=== PATIENT | female | born 1950 | race Caucasian/White ===

== ENCOUNTER 2023-04-18 16:27 | Emergency (ER) | payer MEDICARE, OTHER, SELFPAY ==
[2023-04-18 16:38] VITALS: BP 109/53; BP 84/50; PULSE 70; PULSE 74; RESP 12; TEMP 36.6; O2SAT 98; BMI 26.0
--- NOTE | 2023-04-18 16:48 | ECG_ITS ---
Test Reason : NEAR SYNCOPE Blood Pressure : / mmHG Vent. Rate : 064 BPM Atrial Rate : 064 BPM P-R Int : 152 ms QRS Dur : 076 ms QT Int : 400 ms P-R-T Axes : 055 037 050 degrees QTc Int : 412 ms Normal sinus rhythm Normal ECG No previous ECGs available Referred By: Susan Kaiser Electronically Signed By:HANH WEAVER
[2023-04-18] MEDS: 0.9 % Sodium Chloride 1,000 ML 999 ML IV (16:54)
--- NOTE | 2023-04-18 16:59 | ED_ITS ---
HPI - Syncope General Chief Complaint: Dizziness Stated Complaint: near syncope Time Seen by Provider: 04/18/23 16:35 Source: patient and EMS Mode of arrival: EMS Limitations: no limitations History of Present Illness HPI narrative: playing pickleball for 1.5 hours poor PO intake with water and food felt weak and dizzy responded to time and fluids no preceding CP/SOB has no CP with any activities at baseline MD complaint: felt faint Onset (ago): minute(s) (just prior to arrival ) -: minutes(s) (5) Description of event: other (felt weak and dizzy ) Prodromal symptoms: lightheaded and diaphoresis Witnessed: Yes - by Bystander Context: during exertion (playing pickleball for 1.5 hours poor PO intake and water intake ) Injuries sustained associated with event: none Current symptoms: none and back to baseline Treatments prior to arrival: IV fluids (initial BP 80/50) Related Data Allergies Allergy/AdvReac Type Severity Reaction Status Date / Time Unable to Assess Allergy Verified 04/18/23 16:48 Review of Systems Review of Systems: Constitutional : No Fever, No Chills, No Fatigue ENT/Mouth : No sore throat, No Rhinorrhea Eyes: No Eye Pain, No Swelling, No Redness Cardiovascular : No Chest Pain, No SOB, No Dyspnea on Exertion Respiratory : No Cough, No Sputum Gastrointestinal : No Nausea, No Vomiting, No Diarrhea, No abdominal Pain Genitourinary : No Dysuria, No Urinary Frequency, No Hematuria, Musculoskeletal : No joint pain, No Myalgias, No Joint Swelling Skin : No Skin Lesions, No rash Neuro : No Weakness, No Numbness, pos Dizziness, no Headache Psych : No Anxiety/Panic, No Depression Heme/Lymph: No Bruising, No Bleeding,No Lymphadenopathy Endocrine : No Polyuria, No Polydipsia All other systems reviewed and are negative [facility] Past Medical History Attestation statement: The following information was validated with the patient. Medical History No pertinent past medical history Social History Social History (Updated 04/18/23 @ 17:04 by Susan Kaiser DO) Patient Tobacco Use Status: Never used Tobacco Smoked in Last 30 Days: No Use of substances other than those prescribed or required for medical reasons: No Advance Directives: No Advance Directives Information Provided: Yes Physical Exam Vital Signs: Vital Signs: Last Vital Signs Temp 97.8 F 04/18/23 16:38 Pulse 70 04/18/23 16:38 Resp 12 04/18/23 16:38 BP 109/53 L 04/18/23 16:38 Pulse Ox 98 04/18/23 16:38 O2 Del Method Room Air 04/18/23 16:38 BMI result Body Mass Index 26.0 Appearance: Alert. Oriented X3. No acute distress. Eyes: Pupils equal, round and reactive to light. ENT: Pharynx normal. Neck: Normal inspection. Neck supple. CVS: Normal heart rate and rhythm. Pulses normal. Respiratory: No respiratory distress. Breath sounds normal. Abdomen: Soft and nontender. Skin: Skin warm and dry. Normal skin color. Normal skin turgor. Extremities: No lower extremity edema. No calf ttp Neuro: Oriented X 3. No motor deficit. No sensory deficit. Medications Administered Discontinued Medications Generic Name Dose Route Start Last Admin Trade Name Freq PRN Reason Stop Dose Admin Sodium Chloride 1,000 mls @ 999 mls/hr 04/18/23 17:00 04/18/23 16:54 Ns IV 04/18/23 18:00 999 mls/hr .Q1H1M TEMO Administration Medical Decision Making Medical Decision Making [facility] Narrative: 72 yo female with no PMH was out playing pickleball today with little water in heat for about 1.5 hours she normally participates in the AM - didn't eat anything but breakfast at 10am felt dizzy no CP/SOB tried to get up after being sat down and felt dizzy again - doubt ACS given lack of CP or sob doubt ACS or PE. The patient is back to baseline no headaches denies GIB symptoms suspect dehydration and poor PO intake - BP improve and was low with EMS due to dehydration. IVF labs and EKG ordered Differential Diagnosis Differential Diagnoses: The differential diagnosis associated with the presentation includes dehydration, anemia, CHRISTY, lyte abnormality Admission/Observation Consideration of admission/observation: Escalation of care including admission/observation considered feels better, BP better, EKG normal symptom free doubt ACS stable for outpatient management Lab Data [facility] Lab Attestation statement: I reviewed the patient's lab results. 04/18/23 17:16 Labs: Lab Results 04/18/23 04/18/23 Range/Units 17:16 17:40 WBC 10.1 (4.8-10.8) X10*3/uL RBC 4.59 (4.20-5.50) X10*6/uL Hgb 14.3 (12.0-16.0) g/dl Hct 42.9 (37.0-47.0) % MCV 93.5 (80.0-98.0) fL MCH 31.2 (27.0-33.0) pg MCHC 33.3 (31.0-35.0) g/dl RDW 11.8 (11.0-16.0) % Plt Count 177 (160-400) X10*3/uL MPV 11.2 (9.4-12.3) fL Immature Gran % (Auto) 0.4 (0.0-0.4) % Neut % (Auto) 83.5 H (45-73) % Lymph % (Auto) 9.1 L (20-40) % [place] % (Auto) 5.4 (2-11) % Eos % (Auto) 1.2 (0-4) % Baso % (Auto) 0.4 (0-2) % Lymph # (Auto) 0.9 L (1.2-4.9) X10*3/uL [place] # (Auto) 0.6 (0.1-1.2) X10*3/uL Eos # (Auto) 0.1 (0.0-0.4) X10*3/uL Baso # (Auto) 0.0 (0.0-0.2) X10*3/uL Abs Immat Gran (auto) 0.04 H (0.00-0.03) X10*3/uL Absolute Neuts (auto) 8.5 H (2.0-8.3) x10*3/uL Absolute Nucleated RBC 0.000 (0.0-0.012) X10*3/uL Nucleated RBC % (auto) 0.0 (0.0-0.2) /100WBC Sodium 143 (135-145) mmol/L Potassium 3.8 (3.3-5.1) mmol/L Chloride 112 H (96-108) mmol/L Carbon Dioxide 17 L (22-29) mmol/L Anion Gap 18 (12-20) BUN 22 H (9-16) mg/dL Creatinine 1.00 (0.5-1.4) mg/dL Estim Creat Clear Calc 58.4 Estimated GFR 55 Random Glucose 124 H (60-115) mg/dL Calcium 9.8 (8.4-10.2) mg/dL Magnesium 2.2 (1.6-2.6) mg/dL Independent Interpretation I performed an independent interpretation of an: EKG Interpretation: Rate: 64 Rhythm: NSR [place]: normal Normal P waves. Normal [place]. Normal QRS complex. ST T wave : normal no GOPAL qTC: normal prior studies: no acute ischemia The study has been interpreted contemporaneously by me. . Independent Historian Clinical information obtained from an independent historian. History obtained from or confirmed by: EMS and Other (friend) Discharge Plan Discharge Clinical Impression: Near syncope, Acute dehydration Patient Disposition: Home, Self-Care Instructions: Near Syncope (ED), Dehydration (ED) Additional Instructions: drink plenty of fluids eat a good meal tonight. return for worsening symptoms - dizziness, chest pain, trouble breathing or any other concerns. stay hydrated and bring a sports drink with your while out in the heat. no pickleball tomorrow
[2023-04-18 17:46] LABS: MANUAL DIFF FLAG NO
[2023-04-18 17:50] LABS: Anion Gap 18 (12-20); Blood Urea Nitrogen 22 mg/dL (9-16); Calcium 9.8 mg/dL (8.4-10.2); Carbon Dioxide 17 mmol/L (22-29); Chloride 112 mmol/L (96-108); Creatinine Clr Calc Pharmacy 58.4; Estimated Glomerular Filt Rate 55; Glucose Random 124 mg/dL (60-115); Magnesium 2.2 mg/dL (1.6-2.6); Potassium 3.8 mmol/L (3.3-5.1); Sodium 143 mmol/L (135-145)
--- NOTE | 2023-04-18 18:14 | PC.NURSE ---
PT aox4 amb with steady gait, ivf finished. Pt states she is feeling better
[2023-04-18 18:16] LABS: Basophils Percent Auto 0.4 % (0-2); Eosinophils Absolute Auto 0.1 X10*3/uL (0.0-0.4); Eosinophils Percent Auto 1.2 % (0-4); Hematocrit 42.9 % (37.0-47.0); Hemoglobin 14.3 g/dl (12.0-16.0); Imm Gran Abs Auto 0.04 X10*3/uL (0.00-0.03); Imm Gran Pct Auto 0.4 % (0.0-0.4); Lymphocytes Absolute Auto 0.9 X10*3/uL (1.2-4.9); Lymphocytes Percent Auto 9.1 % (20-40); Mean Corpuscular HGB Conc 33.3 g/dl (31.0-35.0); Mean Corpuscular Hemoglobin 31.2 pg (27.0-33.0); Mean Corpuscular Volume 93.5 fL (80.0-98.0); Mean Platelet Volume 11.2 fL (9.4-12.3); Monocytes Absolute Auto 0.6 X10*3/uL (0.1-1.2); Monocytes Percent Auto 5.4 % (2-11); Neutrophils Absolute Auto 8.5 x10*3/uL (2.0-8.3); Neutrophils Percent Auto 83.5 % (45-73); Platelet Count 177 X10*3/uL (160-400); Red Blood Count 4.59 X10*6/uL (4.20-5.50); Red Cell Distribution Width 11.8 % (11.0-16.0); White Blood Count 10.1 X10*3/uL (4.8-10.8)
[2023-04-18 18:46] VITALS: BP 147/55; PULSE 64; RESP 12; TEMP 36.6; O2SAT 98
== END 2023-04-18 18:54 | disposition home or self-care (01) ==
PROVIDERS: Emergency Provider Emergency Medicine
DX: R55 Syncope and collapse (principal); E86.0 Dehydration
CPT/HCPCS: 36415; 80048; 83735; 85025; 93005; 99284; 99285

== ENCOUNTER → 2023-04-18 16:48 | Outpatient (BNV) | payer MEDICARE, OTHER, SELFPAY | PROVIDERS: Emergency Provider Emergency Medicine; Visit Provider Internal Medicine | DX: R55 Syncope and collapse (principal) | CPT/HCPCS: 93010 ==